=== PATIENT | female | born 1965 | race Caucasian/White ===

== ENCOUNTER 2021-07-30 15:29 | Emergency (ER) | payer OTHER ==
[~2021-07-30] VITALS: Ht 162.6 cm; Wt 57.2 kg
--- NOTE | 2021-07-30 15:42 | NUR ---
BIBRA 88 FROM THE MALL C/O R SHOULDER PAIN 10 AND L KNEE PAIN 10 S/P GLF. DENIES HEAD INJURY. ALERT AND ORIENTED X4. IN ROOM AIR AND DENIES SOB. RESPIRATION REGUALR AND UNLABORED. WILL CONTINUE TO MONITOR THE PATIENT.
[2021-07-30] MEDS ORDERED: ONDANSETRON HCL/PF 4 MG/2 ML VIAL ONE (15:46)
[2021-07-30] MEDS ORDERED: MORPHINE SULFATE INJ 4 MG/ML DISP.SYRIN ONE (15:47)
[2021-07-30] MEDS ORDERED: MORPHINE SULFATE INJ 2 MG/ML DISP.SYRIN IV ONE (16:00)
[2021-07-30] MEDS ORDERED: ONDANSETRON HCL/PF 4 MG/2 ML VIAL IV ONE (16:00)
[2021-07-30] MEDS ORDERED: FENTANYL PF 100MCG/2ML AMPUL ONE ×2 (16:10→17:51)
[2021-07-30] MEDS ORDERED: KETOROLAC TROMETHAMINE 15 MG/ML VIAL ONE ×2 (16:11→17:50)
--- NOTE | 2021-07-30 16:28 | NUR ---
UPDATED GLENYS FLORES (BOYFRIEND) ON PT'S STATUS
[2021-07-30 16:50] VITALS: BP 134/89
[2021-07-30] MEDS ORDERED: IBUP-1955 PO (16:51)
[2021-07-30] MEDS ORDERED: OXYC-128 PO (16:51)
--- NOTE | 2021-07-30 16:55 | NUR ---
SLING WAS APPLIED TO PATIENT
[2021-07-30] MEDS ORDERED: ACET-907 PO (17:11)
[2021-07-30] MEDS ORDERED: FENTANYL PF 100MCG/2ML AMPUL IV ONE ×2 (18:00)
[2021-07-30] MEDS ORDERED: KETOROLAC TROMETHAMINE INJ 30 MG/ML VIAL IV ONE ×2 (18:00)
--- NOTE | 2021-07-30 18:05 | NUR ---
IV removed. Catheter intact and site benign. Pressure and 4x4 applied to site. No bleeding noted.Patient discharged to home in stable condition. Written and verbal after care instructions given. Patient verbalizes understanding of instruction.
== END 2021-07-30 18:07 | disposition home or self-care (01) ==
LOC: ER 16:12
DX: S42.301A Unspecified fracture of shaft of humerus, right arm, initial encounter for closed fracture (principal); S82.002A Unspecified fracture of left patella, initial encounter for closed fracture; Z88.0 Allergy status to penicillin; Z88.1 Allergy status to other antibiotic agents; Z88.8 Allergy status to other drugs, medicaments and biological substances; W19.XXXA Unspecified fall, initial encounter; Y93.89 Activity, other specified; Y92.89 Other specified places as the place of occurrence of the external cause; Y99.8 Other external cause status
CPT/HCPCS: 73020; 73060; 73100; 73564; 96374; 96375; 96376; 99284; J1885 ×2; J2270; J2405; J3010 ×2